=== PATIENT | male | born 1945 | race Caucasian/White ===

== ENCOUNTER 2016-10-05 12:55 | Emergency (ER) | payer MEDICARE, BC | END 2016-10-05 14:42 | disposition home or self-care (01) | LOC: CED 12:55 → CFTX 12:55 | DX: S51.851A Open bite of right forearm, initial encounter (principal); W54.0XXA Bitten by dog, initial encounter; Y92.009 Unspecified place in unspecified non-institutional (private) residence as the place of occurrence of the external cause; Z88.0 Allergy status to penicillin; Z23 Encounter for immunization | CPT/HCPCS: 90471; 90715; 99283 ==